=== PATIENT | female | born 1990 | race Caucasian/White ===

== ENCOUNTER 2020-12-26 18:12 | Emergency (ER) | payer OTHER, SELFPAY ==
[2020-12-26 18:12] VITALS: BP 119/78; PULSE 89; RESP 15; TEMP 37; O2SAT 98; BMI 26.4
--- NOTE | 2020-12-26 18:45 | EX.ED.VIS.EY ---
HPI History of Present Illness Chief Complaint: Eye Problem PFSH PFSH no medical history Home Medications NK 12/26/20 [History Last Taken Unknown] Allergy/AdvReac Type Severity Reaction Status Date / Time No Known Allergies Allergy Verified 12/26/20 18:16 no significant family history no surgical history Social History Smoking Status: Never smoker EXAM Physical Exam Const Vital Signs: 12/26/20 18:12 Temperature 98.6 F Temperature Source Temporal Pulse Rate 89 Respiratory Rate 15 Blood Pressure 119/78 Blood Pressure Mean 91 Pulse Ox 98 Oxygen Delivery Method Room Air Discharge Plan Triage Chief Complaint: Eye Problem ED Provider: Carlos Souza Dx/Rx/DC Orders Prescriptions: No Action NK RF: 0
--- NOTE | 2020-12-26 18:47 | ED.DCSUM_ITS ---
HPI History of Present Illness Chief Complaint: Eye Problem PFS PFS Home Medications NK 12/26/20 [History Last Taken Unknown] Allergy/AdvReac Type Severity Reaction Status Date / Time No Known Allergies Allergy Verified 12/26/20 18:16 Social History Smoking Status: Never smoker ROS ROS ED Constitutional Constitutional ED: Reports systems reviewed and no addt'l complaints, except as documented Eyes Eyes: Reports systems reviewed and no addt'l complaints, except as documented ENT ENT ED: Reports systems reviewed and no addt'l complaints, except as documented Cardiovascular Cardiovascular: Reports systems reviewed and no addt'l complaints, except as documented Respiratory/Chest Respiratory/Chest: Reports systems reviewed and no addt'l complaints, except as documented Gastrointestinal Gastrointestinal: Reports systems reviewed and no addt'l complaints, except as documented Genitourinary Genitourinary ED: Reports systems reviewed and no addt'l complaints, except as documented Musculoskeletal Musculoskeletal: Reports systems reviewed and no addt'l complaints, except as documented Integumentary Reports systems reviewed and no addt'l complaints, except as documented Neurologic Neurologic: Reports systems reviewed and no addt'l complaints, except as documented Psychiatric Psychiatric: Reports systems reviewed and no addt'l complaints, except as documented Endocrine Endocrinology: Reports systems reviewed and no addt'l complaints, except as documented Hematologic/Lymphatic Hematologic/Lymphatic: Reports systems reviewed and no addt'l complaints, except as documented Allergic/Immunologic Allergic/Immunologic ED: Reports systems reviewed and no addt'l complaints, except as documented EXAM Physical Exam Narrative Exam Narrative: Complaining of left eye foreign body sensation after being hit by something. Const Vital Signs: 12/26/20 18:12 Temperature 98.6 F Temperature Source Temporal Pulse Rate 89 Respiratory Rate 15 Blood Pressure 119/78 Blood Pressure Mean 91 Pulse Ox 98 Oxygen Delivery Method Room Air Positive well nourished and well developed General Appearance ED: active, cooperative, comfortable and well developed Orientation / Consciousness: awake, oriented to person, oriented to place and oriented to time Exam Limitations: no limitations HEENT Reports normocephalic and head/scalp atraumatic normocephalic and normal to inspection Face and Sinus: normal facial exam, sinuses nontender and face symmetric Nose: external nose normal, nares normal and no nasal polyps Eyes PERRL, EOMs intact bilaterally, no scleral icterus and no papilledema Eyes Narrative: Mild tenderness to the left thigh. Visual Acuity: acuity normal Periorbital: periorbital findings normal Eyelid: eyelids normal Conjunctiva: conjunctiva abnormal left Cornea: fluorescein used and other Other Details: Left upper medial eye has a corneal abrasion Pupil: PERRL Slit Lamp: slit lamp exam performed with fluorescein Neck full ROM and no lymphadenopathy General: normal visual inspection Lymph Lymphatic: no lymphadenopathy noted Chest Wall inspection of chest normal Chest: symmetrical chest wall rise Resp normal respiratory effort, normal air movement, no retractions and no use of acc essory muscles Effort and Inspection: able to speak in complete sentences Auscultation: clear to auscultation bilaterally Cardio regular rate Rate: regular rate Rhythm: regular rhythm GI normal to inspection, nondistended, normoactive bowel sounds and non-distended Auscultation: normoactive bowel sounds Back/Spine no CVA tenderness Thoracic Spine / Upper Back: normal to inspection Extremity normal to inspection, full ROM, no calf tenderness and no pedal edema Neuro oriented x3, CN's II-XII intact bilaterally and moves all extremities Skin no rashes or lesions noted, no wounds and no mottling General Skin Exam: no breakdown Image ED - Eye Diagram: 1. Left eye left upper medial quadrant small corneal abrasion. No foreign body. There is no globe rupture. Seen on slit-lamp exam with fluorescein staining. MDM MDM MDM Narrative Medical decision making narrative: Female with left eye left upper medial quadrant small corneal abrasion. Treatment and Re-Evaluation Comments:: Tetracaine. Bacitracin ophthalmic ointment to the left eye. Discharge Plan Triage Chief Complaint: Eye Problem ED Provider: Carols Souza Dx/Rx/DC Orders Clinical Impression: Abrasion, corneal Instructions: ED Corneal Abrasion Prescriptions: No Action NK RF: 0 Referrals: Anoop Olivas MD [STAFF PHYSICIAN] - (3 to 5 days if not improving.) Activity Restrictions/Additional Instructions: Compresses to the left eye. Motrin for pain. Apply 2 drops of the anesthetic eyedrops as needed for pain up until tomorrow night. After 24 hours stop using them. May when I wear sunglasses to prevent glare. Disposition Patient Disposition: Home, self care
[2020-12-26] MEDS: Fluorescein 1 MG STRIP 1 STRIP LEFT EYE (19:10)
[2020-12-26] MEDS: Tetracaine 0.5% Ophthalmic Bottle 1 DRP LEFT EYE (19:10)
== END 2020-12-26 19:30 | disposition home or self-care (01) ==
LOC: ED 19:22
PROVIDERS: Emergency Provider Emergency Medicine
DX: S05.02XA Injury of conjunctiva and corneal abrasion without foreign body, left eye, initial encounter (principal); W22.8XXA Striking against or struck by other objects, initial encounter; Y93.9 Activity, unspecified; Y92.9 Unspecified place or not applicable; Y99.9 Unspecified external cause status
CPT/HCPCS: 99282

== ENCOUNTER 2022-04-13 19:46 | Emergency (ER) | payer BC, SELFPAY ==
[2022-04-13 19:47] VITALS: BP 125/81; PULSE 73; RESP 14; TEMP 36.1; O2SAT 99; BMI 25.2
--- NOTE | 2022-04-13 19:58 | EX.ED.UPPERE ---
HPI History of Present Illness Chief Complaint: Upper Extremity Injury Detail of Chief Complaint: Left hand injury Informant: patient and spouse/S.O. Occured/Mechanism Mechanism/Context: Yes fall Onset/Context/Timing Onset: Today Current Severity: Mild Maximum Severity: Moderate Narrative Narrative: Patient presents secondary to left hand injury from a fall. She states they are in the process of moving. She fell and landed on a box. She hit her left hand after putting it up to catch herself. She is right-hand dominant. She also hit the right side of her face against a box but denies any significant pain to that area. PFSH PFS Medical History no medical history no medical history Home Medications NK 12/26/20 [History Last Taken Unknown] Allergy/AdvReac Type Severity Reaction Status Date / Time No Known Allergies Allergy Verified 04/13/22 19:47 Social History Smoking Status: Never smoker ROS ROS ED Constitutional Constitutional ED: Denies chills or fever(s) Eyes Eyes: Denies change in vision or discharge from eye(s) ENT ENT ED: Denies discharge from eye(s), rhinorrhea or sore throat Cardiovascular Cardiovascular: Denies chest pain or palpitations Respiratory/Chest Respiratory/Chest: Denies cough or dyspnea Gastrointestinal Gastrointestinal: Denies abdominal pain, nausea or vomiting Genitourinary Genitourinary ED: Denies dysuria Musculoskeletal Musculoskeletal: Reports extremity pain; Denies back pain Integumentary Reports Abrasions; Denies rash Neurologic Neurologic: Denies headache(s) or weakness Psychiatric Psychiatric: Denies anxiety or depression Allergic/Immunologic Allergic/Immunologic ED: Denies lip swelling or urticaria EXAM Physical Exam Const Vital Signs: 04/13/22 19:47 Temperature 96.9 F L Temperature Source Temporal Pulse Rate 73 Respiratory Rate 14 Blood Pressure 125/81 H Blood Pressure Mean 95 Pulse Ox 99 Oxygen Delivery Method Room Air Positive well nourished and well developed General Appearance ED: well developed HEENT Reports normocephalic and head/scalp atraumatic Eyes PERRL and EOMs intact bilaterally Neck supple Chest Wall inspection of chest normal and palpation of chest normal Resp normal respiratory effort and clear to auscultation bilaterally Cardio regular rate and regular rhythm GI normal to inspection, nondistended, normoactive bowel sounds Palpation: soft Extremity Extremity Narrative: Tenderness to palpation along the index MCP joint. Small abrasion noted along the radial side of the joint. Mild tenderness to the left fourth finger as well. No deformity appreciated. Good range of motion of all digits with normal cap refill and sensation. No tenderness over the wrist, elbow, or shoulder. Neuro oriented x3 and no sensory deficits noted Sensorium / Orientation: alert Motor Exam: strength 5/5 throughout Psych mental status grossly normal MDM MDM MDM Narrative Medical decision making narrative: Left hand x-rays obtained. Patient given ibuprofen for pain. Treatment and Re-Evaluation Narrative: Left hand x-rays reveal no acute fracture per my interpretation. Abrasion will be cleansed and tetanus update will be provided. Patient be discharged home. Discharge Plan Triage Chief Complaint: Upper Extremity Injury ED Provider: Sylwia Zaragoza Dx/Rx/DC Orders Clinical Impression: Fall, Contusion of hand, left, Abrasion Instructions: ED Abrasion, ED Hand Contusion Prescriptions: No Action NK Primary Care Provider: Care Physician,No Primary Referrals: Angy Steen MD [Med Staff - Financial Systems Administrator] - As Needed Care Physician,No Primary [Primary Care Provider] - Disposition Disposition: Home, Self Care
[2022-04-13] MEDS: Ibuprofen 600 MG Tablet PO (20:06)
--- NOTE | 2022-04-13 20:20 | RAD_ITS ---
INDICATION: injury EXAMINATION/TECHNIQUE: X-RAY - LEFT XR Hand Min 3 Views 3 VIEWS COMPARISON: None. FINDINGS: SOFT TISSUES: No soft tissue swelling or gas. No radiopaque foreign body. BONES/JOINTS: No acute fracture or malalignment. Preservation of the joint space and no degenerative bony proliferative changes. No sclerotic or destructive changes observed. RAD/Hand Min 3 Views IMPRESSION: Negative. Electronically Signed: Ashutosh Mejia DO at 21:30 EDT ,
== END 2022-04-13 20:54 | disposition home or self-care (01) ==
PROVIDERS: Emergency Provider Emergency Medicine; Visit Provider Emergency Medicine
DX: S60.222A Contusion of left hand, initial encounter (principal); S09.90XA Unspecified injury of head, initial encounter; W01.198A Fall on same level from slipping, tripping and stumbling with subsequent striking against other object, initial encounter; Y93.E6 Activity, residential relocation
CPT/HCPCS: 73130; 99283

== ENCOUNTER 2022-09-27 06:39 | Emergency (ER) | payer BC, SELFPAY ==
[2022-09-27 06:40] VITALS: BP 111/74; PULSE 71; RESP 18; TEMP 36.3; O2SAT 100; BMI 23.0
--- NOTE | 2022-09-27 06:57 | EDS_ITS ---
HPI History of Present Illness Chief Complaint: Abd Pain Narrative Narrative: Patient is a 32-year-old female with no reported significant past medical or surgical history. She states she went to bed last night without any issues and then awoke roughly 2 hours ago with abdominal pain. She states that after the pain and then present for roughly 1 hour she then became nauseous but denies any vomiting loose stool or diarrhea. She states she recently finished her menstrual cycle and has no concern for and she denies any vaginal discharge or concern for STD. She states she has been no dysuria either and she denies any known sick contact. She states that the pain seemed to be worsening while at home and with the persistent and worsening symptoms and concern for possible infection and comes in for evaluation. PFSH PFSH Medical History no medical history no medical history Home Medications NK 12/26/20 [History Last Taken Unknown] Allergy/AdvReac Type Severity Reaction Status Date / Time No Known Allergies Allergy Verified 09/27/22 06:44 Social History Smoking Status: Never smoker ROS ROS ED Constitutional Constitutional ED: Denies chills or fever(s) ENT ENT ED: Denies sore throat Cardiovascular Cardiovascular: Denies chest pain Respiratory/Chest Respiratory/Chest: Denies cough or dyspnea Gastrointestinal Gastrointestinal: Reports abdominal pain and nausea; Denies diarrhea or vomiting Genitourinary Genitourinary ED: Denies dysuria or hematuria Musculoskeletal Musculoskeletal: Denies back pain or myalgias Integumentary Denies rash Neurologic Neurologic: Denies headache(s) Hematologic/Lymphatic Hematologic/Lymphatic: Denies easy bleeding or easy bruising EXAM Physical Exam Const Vital Signs: 09/27/22 06:40 Temperature 97.3 F L Temperature Source Temporal Pulse Rate 71 Respiratory Rate 18 Blood Pressure 111/74 Blood Pressure Mean 86 Pulse Ox 100 Oxygen Delivery Method Room Air Positive well nourished and well developed General Appearance ED: well developed HEENT Reports moist mucous membranes HEENT Narrative: No trismus change in voice or difficulty with secretions no posterior pharynx changes to suggest infection Eyes PERRL and EOMs intact bilaterally General Eye ED: Negative for scleral icterus Neck supple Neck Narrative: No nuchal rigidity or meningeal signs noted Resp normal respiratory effort and clear to auscultation bilaterally Cardio regular rate and regular rhythm Rate: other Other Details: Radial pulses are plus 2 out of 4 bilaterally are equal and symmetric GI non-distended GI Narrative: Abdomen is soft and nondistended with pain with palpation in the midepigastric as well as suprapubic region. No voluntary guarding or rigidity. No pulsatile mass. Auscultation: normoactive bowel sounds Palpation: soft Back/Spine no CVA tenderness Extremity normal to inspection Neuro oriented x3 and CN's II-XII intact bilaterally Sensorium / Orientation: alert Psych mental status grossly normal Skin no rashes or lesions noted General Skin Exam: Negative for jaundice MDM MDM MDM Narrative Medical decision making narrative: Patient presented to the ER with stable vitals and a nonsurgical abdomen so I felt no need for emergent imaging studies. She reported pain that came on rather suddenly and states that there is been no known sick exposures and she is low risk for pancreatitis as well as gallbladder disease. She states that she does drink caffeine and occasionally eat spicy food but does not have any history of gastritis. At this time with her abdominal discomfort and IV will be established patient will be treated and basic abdominal labs will be obtained. If labs show derangement such as elevation in liver enzymes or lipase or signifi cantly high white count then we can progress to imaging studies such as ultrasound or CT scan. However if symptoms are improved with treatment provided in the ER and labs revealed no clinically significant findings patient will be otherwise safe for discharge. Patient will be signed out to Dr. Mistry pending completion of her workup and response to treatment Discharge Plan Triage Chief Complaint: Abd Pain ED Provider: Froilan Ye Dx/Rx/DC Orders Prescriptions: No Action NK Primary Care Provider: Care Physician,No Primary Referrals: Care Physician,No Primary [Primary Care Provider] -
[2022-09-27 07:03] LABS: Absolute Lymphocyte Count 1.98 X10^3/uL (0.83-4.51); Absolute Neutrophil Count 3.5 X10^3/uL (2.0-7.7); Basophil# 0.05 X10^3/uL; Basophil% 0.8 % (0-1); Eosinophil# 0.32 X10^3/uL; Eosinophils% 4.9 % (0-5); Hematocrit 40.3 % (37-47); Hemoglobin 13.6 g/dL (12.0-15.0); Lymphocyte # 1.98 X10^3/ul (0.83-4.51); Lymphocyte % 30.3 % (19-41); Mean Corp Hgb Conc 33.7 g/dL (32-36); Mean Corpuscular Hgb 28.5 pg (27.0-32.0); Mean Corpuscular Volume 84.3 fL (81-99); Mean Platelet Vol. 10.3 fl (6.2-12.0); Monocyte# 0.69 X10^3/uL; Monocyte% 10.6 % (0-10); NRBC Flagged by Analyzer 0 % (0-5); Neutrophil # 3.47 X10^3/uL (2.7-7.7); Neutrophil % 53.1 % (47-70); Platelet Count 340 K/mm3 (150-450); RBC Distribution Width CV 12.7 % (11.6-14.6); RBC Distribution Width SD 39.2 fl (35.1-43.9); Red Blood Count 4.78 M/mm3 (4.2-5.4); White Blood Count 6.5 K/mm3 (4.4-11.0)
[2022-09-27] MEDS: Ondansetron 4 MG/2 ML Vial IV ×2 (07:10→09:16)
[2022-09-27] MEDS: Morphine 4 MG/ML Syringe IV (07:10)
[2022-09-27] MEDS: 0.9% Normal Saline 1,000 ML 999 ML IV (07:11)
[2022-09-27 07:19] LABS: AST(SGOT) 13 U/L (15-37); Alanine Aminotransfer ALT/SGPT 22 U/L (13-56); Albumin, Serum 3.9 g/dL (3.2-5.0); Alkaline Phosphatase 60 U/L (45-117); Anion Gap 9 (5-15); BUN 11 mg/dL (7-18); BUN/Creat Ratio 16.5 RATIO (10-20); Bilirubin, Direct 0.13 mg/dL (0.00-0.30); Calcium,Total 9.2 mg/dL (8.5-10.1); Chloride 104 mmol/L (98-107); Creatinine, Serum 0.67 mg/dL (0.55-1.02); EST Glomerular Filtration Rate 110 mL/min (>60); Est Glom Filt Rate - Afr Amer 133 mL/min (>60); Estimated Creatinine Clearance 110.48 ml/min; Globulin 3.7 g/dL (2.2-4.2); Glucose 108 mg/dL (74-106); Lipase 102 U/L (73-393); Potassium 3.9 mmol/L (3.5-5.1); Protein, Total 7.6 g/dL (6.4-8.2); Sodium Level 139 mmol/L (136-145)
--- NOTE | 2022-09-27 07:26 | CT_ITS ---
STUDY: CT ABDOMEN AND PELVIS WITH CONTRAST REASON FOR EXAM: Female, 32 years old. Upper abdominal pain and nausea. RADIATION DOSAGE (If Supplied By Facility): CTDIvol = ( 9.36 ) mGy, DLP = ( 453.46 ) mGycm TECHNIQUE: Transaxial images were obtained from the dome of the diaphragm to the symphysis pubis with oral contrast. Oral and amp; IV Gastrografin and amp; 100mL Isovue-370 was administered. Sagittal and coronal images were reconstructed. Individualized dose optimization techniques were used for this CT. COMPARISON: None. FINDINGS: The visualized lung bases are unremarkable. The visualized portions of the heart are within normal limits. Edema surrounding the portal triads within the liver suggestive of possible hepatitis or liver congestion. Normal gallbladder and extrahepatic biliary system. Normal spleen. Normal pancreas. Normal bilateral adrenal glands. Normal right kidney. Normal left kidney. There is a small hiatal hernia. Only minimally dilated fluid-filled small bowel loop in the left lower abdomen and pelvis. Normal colon. The appendix is visualized and appears normal. Normal abdominal aorta. Normal inferior vena cava. Normal retroperitoneum. Normal urinary bladder. Follicles are seen in the right ovary. Normal abdominal wall. Normal osseous structures. CT/Abdomen/Pelvis WITH Contrast IMPRESSION: There is portal edema in the liver. Minimally dilated localized small bowel loop in the left lower abdomen and upper left pelvis. Electronically Signed: Silviano Wagner MD at 9:26 EST ,
[2022-09-27 07:45] LABS: Internal QC Validated? YES +Cl - CLEAR BKGD; Pregnancy, Serum, hCG Quali. NEGATIVE Negative
[2022-09-27] MEDS: HYDROmorphone 0.5 MG/0.5 ML SYRINGE IV ×2 (07:46→09:16)
[2022-09-27 08:11] LABS: Lactic Acid 1.3 mmol/L (0.4-1.9)
[2022-09-27 08:40] VITALS: PULSE 80; RESP 16; O2SAT 100
[2022-09-27 09:19] LABS: Bacteria 0 SEEN /hpf (None Seen); Mucous, Urine 0 SEEN /hpf (<or=2+); Red Blood Cells-Urine 0 SEEN /hpf (0-5); White Blood Cells 0 SEEN /hpf (0-5)
[2022-09-27 09:26] LABS: Color, Urine YELLOW (Yellow); Urine Clarity Clear (Clear)
[2022-09-27 09:27] LABS: Leukocyte Esterase-Dipstick Negative /ul (Negative)
[2022-09-27 09:28] LABS: Glucose, Dipstick NEGATIVE (Normal); Ketone-Dipstick Negative (Negative); Nitrite-Dipstick Negative (Negative); Protein-Dipstick 15 mg/dl (Negative); Urine Bilirubin Dipstick Negative (Negative); Urine Urobilinogen Normal (Normal)
[2022-09-27 09:29] LABS: Occult Blood-Urine 10 /ul (Negative)
--- NOTE | 2022-09-27 09:31 | US_ITS ---
STUDY: ULTRASOUND OF THE FEMALE PELVIS - COMPLETE REASON FOR EXAM: Female, 32 years old. Abdominal pain, rule out torsion -- LT PELVIC PAIN - R/O TORSION LMP: 09/21/2022. TECHNIQUE: Transvaginal TECHNICAL QUALITY: Adequate. COMPARISON: Comparison is made with prior CT scan done earlier in the day. FINDINGS: The uterus is anteverted and is in a midline position. The uterus measures 8.1 cm x 6.3 cm x 4.6 cm. Normal uterine cervix. The endometrium measures 8 mm in thickness, and is heterogeneous (striated). There is no demonstrated endometrial mass. There is no demonstrated myometrial mass. I.U.D. - The patient does not have an I.U.D. The right ovary is visualized. The right ovary measures 3.6 cm x 3.8 cm x 2.8 cm. There is no right ovarian cyst or ovarian mass. There is no visualized right adnexal mass or complex lesion. There is normal arterial and normal venous vascularity. The left ovary is visualized. The left ovary measures 4.1 cm x 4.3 cm x 1.6 cm. Vision 1.5 cm x 1.6 x 1.5 cm follicle in the ovary. There is no visualized left adnexal mass or complex lesion. There is normal arterial and normal venous vascularity. There is minimal fluid in the cul-de-sac. US/Transvaginal Non- IMPRESSION: Small follicle in the left ovary. Trace amount of free fluid in the pelvis. Electronically Signed: Silviano Wagner MD at 11:04 EST ,
[2022-09-27 09:40] LABS: Squamous Epithelial Cells - UA 0-5 SEEN /hpf (5-10)
--- NOTE | 2022-09-27 11:23 | ED.VIS.GI ---
HPI HPI - GI History of Present Illness Chief Complaint: Abd Pain PFSH PFSH Medical History no medical history Home Medications hydrocodone-acetaminophen 5-325mg 5mg-325mg 1 tab PO Q4H PRN PRN Pain 2 days #10 TABLETS 09/27/22 [Rx Last Taken Unknown] lansoprazole 30 mg capsule,delayed release (Prevacid) 30 mg PO DAILY #14 caps 09/27/22 [Rx Last Taken Unknown] ondansetron 4 mg disintegrating tablet 4 mg PO Q8H PRN PRN Nausea #10 tabs 09/27/22 [Rx Last Taken Unknown] Allergy/AdvReac Type Severity Reaction Status Date / Time No Known Allergies Allergy Verified 09/27/22 06:44 Social History Smoking Status: Never smoker EXAM Physical Exam Const Vital Signs: 09/27/22 06:40 09/27/22 08:40 Temperature 97.3 F L Temperature Source Temporal Pulse Rate 71 80 Respiratory Rate 18 16 Blood Pressure 111/74 Blood Pressure Mean 86 Pulse Ox 100 100 Oxygen Delivery Method Room Air Room Air [facility] Lab Data Labs: Laboratory Results - last 24 hr 09/27/22 09/27/22 09/27/22 06:52 06:52 06:52 WBC 6.5 RBC 4.78 Hgb 13.6 Hct 40.3 MCV 84.3 MCH 28.5 MCHC 33.7 RDW Std Deviation 39.2 RDW Coeff of Phillip 12.7 Plt Count 340 MPV 10.3 Immature Gran % (Auto) 0.300 Neut % (Auto) 53.1 Lymph % (Auto) 30.3 Granite % (Auto) 10.6 H Eos % (Auto) 4.9 Baso % (Auto) 0.8 Absolute Neuts (auto) 3.5 Absolute Lymphs (auto) 1.98 Nucleated RBC % 0 Sodium 139 Potassium 3.9 Chloride 104 Carbon Dioxide 26.0 Anion Gap 9 BUN 11 Creatinine 0.67 Estim Creat Clear Calc 110.48 Est GFR (MDRD) Af Amer 133 Est GFR (MDRD) Non-Af 110 BUN/Creatinine Ratio 16.5 Glucose 108 H Lactic Acid Calcium 9.2 Total Bilirubin 0.60 Direct Bilirubin 0.13 AST 13 L ALT 22 Alkaline Phosphatase 60 Total Protein 7.6 Albumin 3.9 Globulin 3.7 Lipase 102 Serum , Qual NEGATIVE Urine Color Urine Clarity Urine pH Ur Specific [place] Urine Protein Urine Glucose (UA) Urine Ketones Urine Occult Blood Urine Nitrite Urine Bilirubin Urine Urobilinogen Ur Leukocyte Esterase Urine RBC Urine WBC Ur Squamous Epith Cells Urine Bacteria Urine Mucus 09/27/22 09/27/22 07:30 09:15 WBC RBC Hgb Hct MCV MCH MCHC RDW Std Deviation RDW Coeff of Phillip Plt Count MPV Immature Gran % (Auto) Neut % (Auto) Lymph % (Auto) Granite % (Auto) Eos % (Auto) Baso % (Auto) Absolute Neuts (auto) Absolute Lymphs (auto) Nucleated RBC % Sodium Potassium Chloride Carbon Dioxide Anion Gap BUN Creatinine Estim Creat Clear Calc Est GFR (MDRD) Af Amer Est GFR (MDRD) Non-Af BUN/Creatinine Ratio Glucose Lactic Acid 1.3 Calcium Total Bilirubin Direct Bilirubin AST ALT Alkaline Phosphatase Total Protein Albumin Globulin Lipase Serum , Qual Urine Color YELLOW Urine Clarity Clear Urine pH 7.0 Ur Specific [place] 1.010 Urine Protein 15 H Urine Glucose (UA) NEGATIVE Urine Ketones Negative Urine Occult Blood 10 Urine Nitrite Negative Urine Bilirubin Negative Urine Urobilinogen Normal Ur Leukocyte Esterase Negative Urine RBC 0 SEEN Urine WBC 0 SEEN Ur Squamous Epith Cells 0-5 SEEN Urine Bacteria 0 SEEN Urine Mucus 0 SEEN Radiography Diagnostic Testing: Clinical Impression(s) from Imaging Studies Abdomen/Pelvis CT 09/27/22 07:26 IMPRESSION: There is portal edema in the liver. Minimally dilated localized small bowel loop in the left lower abdomen and upper left pelvis. Electronically Signed: Silviano Wagner MD at 9:26 EST , Transvaginal US 09/27/22 09:31 IMPRESSION: Small follicle in the left ovary. Trace amount of free fluid in the pelvis. Electronically Signed: Silviano Wagner MD at 11:04 EST , Discharge Plan Triage Chief Complaint: Abd Pain ED Provider: Froilan Ye Dx/Rx/DC Orders Clinical Impression: Abdominal pain Instructions: ED Abdominal Pain Unkn Cause Fem Prescriptions: New hydrocodone-acetaminophen [hydrocodone-acetaminophen] 5-325 mg tablet 1 tab PO Q4H PRN PRN (Reason: Pain) 2 Days Qty: 10 0RF ondansetron [ondansetron] 4 mg tablet,disintegrating 4 mg PO Q8H PRN PRN (Reason: Nausea) Qty: 10 0RF lansoprazole [Prevacid] 30 mg capsule,delayed release(DR/EC) 30 mg PO DAILY Qty: 14 0RF Primary Care Provider: Care Physician,No Primary Referrals: Alberto Ewing MD [Med Staff - Active Staff] - 3-5 Days Care Physician,No Primary [Primary Care Provider] - Disposition Disposition: Home, Self Care
[2022-09-27 12:14] VITALS: BP 95/63; PULSE 62
== END 2022-09-27 12:14 | disposition home or self-care (01) ==
PROVIDERS: Emergency Medicine; Emergency Provider Emergency Medicine; Visit Provider Emergency Medicine
DX: R10.9 Unspecified abdominal pain (principal); R11.0 Nausea
CPT/HCPCS: 74177; 76830; 80048; 80076; 81001; 83605; 83690; 84703; 85025; 96361; 96374; 96375; 96376; 99282; J7030; Q9967; A4216; J2405